=== PATIENT | male | born 1955 | race Caucasian/White ===

== ENCOUNTER 2017-04-19 17:28 | Emergency (ER) | payer OTHER ==
--- NOTE | 2017-04-19 18:06 | EDPHY ---
H & P Stated Complaint: BIBA for rt lower back/upper buttock pain, some radiation to RLQ, x 3 days Time Seen by Provider: 04/19/17 17:37 HPI/ROS: Chief Complaint: Back pain HPI: 61-year-old male has been having 3 days of right-sided back pain above his buttocks. States he wakes up without pain but the pain seems to get worse as the day goes on. Today he did some yd work. When running 1 and a down and pain became severe to the point that he felt he could not rule out of bed. He has not had any new weakness. No urinary incontinence or difficulty urinating. No fevers or chills. Denies any falls or any trauma. Patient states that he did pass gas short time ago and is now feeling significantly improved. At worst pain was 8/10. Right now it is a 1/10. ROS: 10 point Review of Systems is negative except as noted in the HPI. PMH: Denies Medications: None Allergies: None Social History: No smoking, no alcohol, no recreational drug use Family History: non-contributory Physical Exam: Gen: Awake, Alert, No Distress HEENT: Nose: no rhinorrhea Eyes: PERRLA, EOMI Mouth: Moist mucosa Neck: Supple, no JVD Chest: nontender, lungs clear to auscultation Heart: S1, S2 normal, no murmur Abd: Soft, non-tender, no guarding Back: no CVA tenderness, no midline tenderness Ext: no edema, non-tender Skin: no rash Neuro: CN II-XII intact, Sensation grossly intact, Strength 5/5 in bilateral upper and lower extremities - Personal History Current Tetanus/Diphtheria Vaccine: Yes Current Tetanus Diphtheria and Acellular Pertussis (TDAP): Yes Tetanus Vaccine Date: 2014 - Medical/Surgical History Hx Asthma: No Hx Chronic Respiratory Disease: No Hx Diabetes: No Hx Cardiac Disease: No Hx Renal Disease: No Hx Cirrhosis: No Hx Alcoholism: No Hx HIV/AIDS: No Hx Splenectomy or Spleen Trauma: No Other PMH: L knee surgery - Social History Smoking Status: Never smoked Constitutional: Initial Vital Signs Temperature (C) 36.9 C 04/19/17 17:49 Heart Rate 55 L 04/19/17 17:49 Respiratory Rate 16 04/19/17 17:49 Blood Pressure 172/102 H 04/19/17 17:49 O2 Sat (%) 100 04/19/17 17:49 O2 Delivery Mode Room Air Allergies/Adverse Reactions: No Known Allergies Allergy (Unverified 04/19/17 17:45) Home Medications: Medication Instructions Recorded NK [No Known Home Meds] 04/19/17 Medical Decision Making ED Course/Re-evaluation: Urinalysis is negative. Abdomen has a soft benign abdomen. He has a full range of motion of his right hip without any discomfort. He is ambulating without assistance. Symptoms are consistent with musculoskeletal pain. I have instructed him to use ice, ibuprofen, and ambulation. He will follow up with primary care physician in 3-4 days. Return for worsening. He has no red flags for acute neurologic process. Otherwise negative examination. - Data Points Laboratory Results: Laboratory Results 04/19/17 18:00 04/19/17 18:00 04/19/17 04/19/17 04/19/17 18:00 18:00 18:00 WBC 8.16 10^3/uL 10^3/uL (3.80-9.50) RBC 5.04 10^6/uL 10^6/uL (4.40-6.38) Hgb 16.4 g/dL g/dL (13.7-17.5) Hct 47.4 % % (40.0-51.0) MCV 94.0 fL fL (81.5-99.8) MCH 32.5 pg pg (27.9-34.1) MCHC 34.6 g/dL g/dL (32.4-36.7) RDW 13.3 % % (11.5-15.2) Plt Count 255 10^3/uL 10^3/uL (150-400) MPV 11.6 fL fL (8.7-11.7) Neut % (Auto) 67.8 % % (39.3-74.2) Lymph % (Auto) 25.4 % % (15.0-45.0) [place]cl[place] % (Auto) 5.4 % % (4.5-13.0) Eos % (Auto) 0.0 % L % (0.6-7.6) Baso % (Auto) 0.4 % % (0.3-1.7) Nucleat RBC Rel Count 0.0 % % (0.0-0.2) Absolute Neuts (auto) 5.54 10^3/uL 10^3/uL (1.70-6.50) Absolute Lymphs (auto) 2.07 10^3/uL 10^3/uL (1.00-3.00) Absolute Monos (auto) 0.44 10^3/uL 10^3/uL (0.30-0.80) Absolute Eos (auto) 0.00 10^3/uL L 10^3/uL (0.03-0.40) Absolute Basos (auto) 0.03 10^3/uL 10^3/uL (0.02-0.10) Absolute Nucleated RBC 0.00 10^3/uL 10^3/uL (0-0.01) Immature Gran % 1.0 % % (0.0-1.1) Immature Gran # 0.08 10^3/uL 10^3/uL (0.00-0.10) Sodium 141 mEq/L mEq/L (134-144) Potassium 4.2 mEq/L mEq/L (3.5-5.2) Chloride 104 mEq/L mEq/L (97-110) Carbon Dioxide 25 mEq/l mEq/l (22-31) Anion Gap 12 mEq/L mEq/L (8-16) BUN 11 mg/dL mg/dL (7-23) Creatinine 0.9 mg/dL mg/dL (0.7-1.3) Estimated GFR > 60 Glucose 111 mg/dL H mg/dL (70-100) Calcium 10.3 mg/dL mg/dL (8.5-10.4) Urine Color YELLOW Urine Appearance CLEAR Urine pH 9.0 H (5.0-7.5) Ur Specific [place] 1.018 (1.002-1.030) Urine Protein NEGATIVE (NEGATIVE) Urine Ketones NEGATIVE (NEGATIVE) Urine Blood NEGATIVE (NEGATIVE) Urine Nitrate NEGATIVE (NEGATIVE) Urine Bilirubin NEGATIVE (NEGATIVE) Urine Urobilinogen NEGATIVE EU EU (0.2-1.0) Ur Leukocyte Esterase NEGATIVE (NEGATIVE) Urine Glucose NEGATIVE (NEGATIVE) Departure - Departure Disposition: Home, Routine, Self-Care Clinical Impression: Back pain Condition: Good Instructions: Low Back Strain (ED), Lower Back Exercises (ED) Additional Instructions: He may take ibuprofen 400 mg every 4-6 hours as needed for pain. Apply ice to her back for 15 minutes 4 to 6 times a day. Make sure to remain active. Bed rest will make your back pain worse. Follow up with primary care physician in 3-4 days for further evaluation. Return to the emergency depart for increasing pain, numbness, weakness, nausea, vomiting, fevers, chills, or any other concerns. Referrals: Patient,NotPresent [Unknown] - As per Instructions
[2017-04-19 18:15] LABS: ABSOLUTE IMMATURE GRANULOCYTES 0.08 10^3/uL (0.00-0.10); ADD DIFF? NO; ADD MORPH? NO; ADD SCAN? NO; ATYPICAL LYMPHOCYTE FLAG 0 (0-99); FRAGMENT RBC FLAG 0 (0-99); HEMATOCRIT 47.4 % (40.0-51.0); HEMOGLOBIN 16.4 g/dL (13.7-17.5); LEFT SHIFT FLG 10 (0-99); LIPEMIA HEMOLYSIS FLAG 90 (0-99); MEAN CELL HEMOGLOBIN 32.5 pg (27.9-34.1); MEAN CELL HEMOGLOBIN CONCENTR. 34.6 g/dL (32.4-36.7); MEAN PLATELET VOLUME 11.6 fL (8.7-11.7); PLATELET CLUMPS FLAG 0 (0-99); PLATELET COUNT 255 10^3/uL (150-400); RED BLOOD CELL COUNT 5.04 10^6/uL (4.40-6.38); RED CELL DISTRIBUTION WIDTH 13.3 % (11.5-15.2)
[2017-04-19 18:18] LABS: COLOR YELLOW; LEUKOCYTE ESTERASE,URINE NEGATIVE (NEGATIVE); NITRITE,URINE NEGATIVE (NEGATIVE)
[2017-04-19 18:22] VITALS: RESP 16
[2017-04-19 18:38] LABS: ANION GAP 12 mEq/L (8-16); CALCIUM 10.3 mg/dL (8.5-10.4); CARBON DIOXIDE 25 mEq/l (22-31); CHLORIDE 104 mEq/L (97-110); CREATININE 0.9 mg/dL (0.7-1.3); GLOMERULAR FILTRATION RATE > 60; GLUCOSE 111 mg/dL (70-100); POTASSIUM 4.2 mEq/L (3.5-5.2); SODIUM 141 mEq/L (134-144)
[2017-04-19 19:09] VITALS: BP 151/85; PULSE 57; TEMP 98.1; O2SAT 97
== END 2017-04-19 19:09 | disposition home or self-care (01) ==
LOC: EDUNIT#
DX: M54.9 Dorsalgia, unspecified (principal)